=== PATIENT | female | born 1985 | race Caucasian/White ===

== ENCOUNTER 2021-01-27 06:49 | Day surgery (SDC) | payer OTHER ==
[~2021-01-27] VITALS: Ht 160 cm; Wt 81.8 kg
[~2021-01-27 06:49] MED LIST: FAMO20TA8 PO; MONT-40 PO; SODIUM CHLORIDE 0.9% 1,000 ML IV ONE
[2021-01-27] MEDS ORDERED: SODIUM CHLORIDE 0.9% 1,000 ML ONE (07:22)
[2021-01-27] MEDS ORDERED: FentaNYL CITRATE PF 100 MCG/2 ML VIAL ONE (07:53)
[2021-01-27] MEDS ORDERED: MIDAZOLAM HCL 5 MG/ML VIAL ONE (07:54)
[2021-01-27] MEDS ORDERED: MethylPREDNISolone SOD SUCC 125 MG/2 ML VIAL ONE (09:04)
[2021-01-27] MEDS ORDERED: MethylPREDNISolone SOD SUCC 125 MG/2 ML VIAL IVP ONE (09:45)
[2021-01-27] MEDS ORDERED: OXYGEN THERAPY IH SCH (20:00)
== END 2021-01-27 11:30 | disposition home or self-care (01) ==
LOC: SURGERY 06:49
PROVIDERS: ATTEND Internal Medicine Critical Care Medicine
DX: J38.4 Edema of larynx (principal); B37.0 Candidal stomatitis; Z72.89 Other problems related to lifestyle; Z98.890 Other specified postprocedural states
CPT/HCPCS: 31623; 31624; 71045; 71250; 84703; 87015; 87070; 87101; 87205; 87206; 87220; 88112; 88184; 88185; 88312; J2250; J2930; J3010; J7030